=== PATIENT | female | born 1990 | race African-American/Black ===

== ENCOUNTER 2019-11-20 19:45 | Inpatient (IN) | payer OTHER ==
[~2019-11-20 19:45] MED LIST: Bupivacaine 0.25% HCL 30 ML VIAL ONE
[2019-11-20] MEDS ORDERED: Ondansetron PF 4 MG/2 ML Vial IVP PRN (20:00)
[2019-11-20] MEDS ORDERED: Ibuprofen 800 MG TAB PO PRN (20:00)
[2019-11-20] MEDS ORDERED: NS / Oxytocin 40 units/1000ml 1,000 ML IV PRN (20:00)
[2019-11-20] MEDS ORDERED: Lidocaine 1% (PF) 30 ML VIAL SC PRN (20:00)
[2019-11-20] MEDS ORDERED: Promethazine HCl 25 MG/ML VIAL IM PRN (20:00)
[2019-11-20] MEDS ORDERED: hydrALAZINE 20 MG/ML VIAL SLOW IVP PRN (20:00)
--- NOTE | 2019-11-20 20:02 | PDOC.FPROB ---
FMR OB H&P: HPI - History of Present Illness Chief Complaint: IOL Indentification: 29 y/o @ 40.4 wks dated by 9.0 wk sono History of Present Illness: Pt reports feeling mild cramping, but no full contractions. Denies LOF, VB. Endorses some regular vaginal d/c but no odor or pain. Endorses movement. Primary Care Physician: Dr. Rodriguez - [facility] FMR OB H&P: Current - Care : 4 Para: [id number] Gestational age: 40.4 WGA Due date: 11/16/19 Dating Criteria: 9.0 wk sono Course/Complications: short interval obesity 1T chlamydia, neg TU mild intermittent asthma - OB Labs Blood type: A RH: positive HIV: negative RPR: negative HepBsAg: negative Rubella: immune Gonorrhea: negative Chlamydia: positive in 1T with negative TU Pap Smear: NILM, HPV neg 03/2019 A1c: 5.4% GBS: negative - First Trimester Ultrasound First trimester: 9.0 wk dating sono - Additional Ultrasound Additional: mBPP, RICHARD 8.46, NST reactive. 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 History: 1T chlamydia +, neg TU - Surgical History Sx History: none - Social History Social History: denies tobacco, etoh or drugs - Family History Family History: mother: asthma, HTN Sisters: asthma Grandparent: DM FMR OB H&P: Medications - Current Home Medications: Medication Instructions Recorded Confirmed Type Albuterol Sulfate [Proair HFA] 2 puff INH PRN PRN 11/20/19 11/20/19 History Allergies/Adverse Reactions: Allergies Allergy/AdvReac Type Severity Reaction Status Date / Time No Known Allergies Allergy Verified 11/20/19 20:18 FMR OB H&P: ROS - Review of Systems General: denies: fever/chills, weight/appetite/sleep changes Eyes: denies: vision changes, double vision ENT: denies: nasal congestion, sore throat Cardiovascular: denies: chest pain, edema Respiratory: denies: cough, shortness of breath Gastrointestinal: reports: nausea. denies: abdominal pain, vomiting Genitourinary (Female): denies: dysuria, hematuria, vaginal bleeding, contractions Musculoskeletal: denies: pain, swelling Neurologic: denies: numbness, weakness Integumentary: denies: itching, rash Hematologic/Lymphatic: denies: prolonged or excessive bleeding, enlarged lymph nodes Psychological: denies: depression, anxiety FMR OB H&P: Vital Signs - Maternal Vital signs: BP 128/73, HR 95, RR 16, O2 sat 97% on RA - Heart Tones Baseline: 130 Variability: moderate Acceleration: present Deceleration: absent Category: category 1 [place] contractions every: q1-2 min FMR OB H&P: Physical Exam - Physical Exam General: NAD, awake, alert and oriented HEENT: normocephalic and atraumatic, MMM, conjunctiva clear, grossly normal vision Neck: supple, no LAD Heart: pulses present, no edema General: no respiratory distress, no retractions Abdomen: soft, gravid, non-tender Musculoskeletal: normal gait and station, pulses present Neurological: no clonus, no focal deficit Skin: good tugor, capillary refill <2 seconds Lymphatic: no unusual bruising or bleeding, no purpura Psychiatric: intact recent and remote memory, good judgement and insight - Pelvic Exam Vulva: normal hair distribution, no discharge, no blood SVE: 3/60/-3/soft/posterior Presentation: cephalic FMR OB H&P: A/P - Problem List (1) Current Visit: Yes Status: Acute (2) Mild intermittent asthma Current Visit: No Status: Acute Code(s): J45.20 - MILD INTERMITTENT ASTHMA, UNCOMPLICATED Disposition: 1. Postdates -Admit to L&D for IOL -Dominguez score 6, so will start with cytotec -Continuous monitoring -GBS negative 2. Short Interpregnancy Interval 3. h/o Chlamydia in 1T Neg TU 4. Mild intermittent asthma Uses rescue inhaler 1-2 times per month -Avoid Hemabate Discussion: Date/Time: 11/20/192001 This H&P was discussed with Dr. Barakat who agrees with the above documentation and plan. Signature: Katherine Menon MD, PGY-3 Addendum - Attending - Attending Attestation Date/Time: 11/20/19 1730 I personally evaluated the patient and discussed the management with Dr. Menon. I agree with the History, Examination, Assessment and Plan documented above with any addition or exceptions noted below.
[2019-11-20 20:28] VITALS: BMI 36.9
[2019-11-20] MEDS: Lactated Ringer's 1,000 ML IV SCH (20:38)
[2019-11-20] MEDS: Misoprostol 100 MCG TAB VAG SCH (21:00)
[2019-11-20 21:21] LABS: Mean Corpuscular HGB CONC 31.6 g/dL (32.0-36.0); Mean Corpuscular Hemoglobin 21.8 pg (27.0-31.0); Mean Corpuscular Volume 68.8 fL (78.0-98.0); Mean Platelet Volume 9.4 fL (7.4-10.4); Platelet Count 268 thou/uL (130-400); RBC Distribution Width 14.8 % (11.5-14.5); Red Blood Cell (RBC) Count 5.04 mill/uL (4.20-5.40); White Blood Cell (WBC) Count 8.3 thou/uL (4.8-10.8)
[2019-11-20 22:01] LABS: Syphilis Antibody Nonreactive (Nonreactive); Syphilis Antibody Index 0.05 S/CO (<1.00 Non-Reactive)
[2019-11-20 23:37] LABS: HBSAg Index 0.22 S/CO (0-0.99); Hep B Surf Ag Non-Reactive S/CO (NonReactive)
[2019-11-21] MEDS ORDERED: Fentanyl 4 mcg/Bup 0.1% Cadd 100 ML ONE (01:17)
--- NOTE | 2019-11-21 01:20 | PDOC.LDPN ---
Labor & Delivery Progress Note - Subjective Subjective: comfortable, painful contractions, no concerns - Objective Vital signs reviewed and normal: yes General: NAD, resting, breathing through contractions Uterine fundus: non tender SVE: 575/-2 Dilation: 5 Effacement: 75% Station: -2 FHT: category 1 (FHT 130), variability present [place] contractions every: 2-3 min Plan: continue plan of care, pitocin for augmentation -: 29 y/o @ 40.5 wks dated by 9.0 wk sono presents for IOL: #Postdates -initial SVE @ 2030 is 360/-1, cytotec placed at 2100 -SVE @ 0130 is 575/-1, plan to start Pitocin -Continuous monitoring -GBS negative -Maternal position changes as needed #Short Interpregnancy Interval #h/o Chlamydia in 1T Neg TU #Mild intermittent asthma Uses rescue inhaler 1-2 times per month -Avoid Hemabate Dispo: Admitted to L&D for IOL. Continue to monitor labor progression, plan to start Pitocin augmentation with this check. Next check in ~ 4 hours.
[2019-11-21] MEDS ORDERED: Fentanyl 100 MCG/2 ML VIAL ONE (01:24)
[2019-11-21] MEDS: Misoprostol 100 MCG TAB VAG SCH ×6 (02:12→21:31)
[2019-11-21] MEDS: Lactated Ringer's 1,000 ML IV SCH ×2 (02:30→05:00)
[2019-11-21] MEDS ORDERED: Bupivacaine 0.25% HCL 30 ML VIAL ONE (03:13)
--- NOTE | 2019-11-21 05:01 | PDOC.LDPN ---
Labor & Delivery Progress Note - Subjective Subjective: comfortable, painful contractions - Objective Vital signs reviewed and normal: yes General: NAD, resting, breathing through contractions Uterine fundus: non tender SVE: 7.5/90/-1, mid-position, soft Dilation: 7.5 Effacement: 90% Station: -1 FHT: category 2 (FHT 120 baseline), late decelerations (recurrent with mild to moderate variability), variability present [place] contractions every: 2-4 min Resuscitative measures: maternal position change Plan: continue plan of care, labor augmentation -: 29 y/o @ 40.5 wks dated by 9.0 wk sono presents for IOL: #Postdates -initial SVE @ 2030 is 3/60/-1, cytotec placed at 2100 -SVE @ 0130 is 5/75/-1, plan to start Pitocin -SVE @ 0445 is 7.5/90/-1, having recurrent late decels on FHT-responsive to maternal position changes -Continuous monitoring -GBS negative -Maternal position changes as needed -Epidural placed at 0430 #Short Interpregnancy Interval #h/o Chlamydia in 1T Neg TU #Mild intermittent asthma Uses rescue inhaler 1-2 times per month -Avoid Hemabate Dispo: Admitted to L&D for IOL. Continue to monitor closely for labor progression. Monitor FHT closely. Next check in ~2-3 hours.
--- NOTE | 2019-11-21 07:13 | PDOC.OPDEL ---
OB Operative/Delivery Note Delivery Dr/Surgeon: Jozef Yost Neal Pre-Delivery Diagnosis: elective induction Procedure/Post Delivery Dx: spontaneous vaginal delivery Anesthesia: epidural - Additional Findings/Plan Placenta delivered: spontaneous Repaired Obstetrical Laceration: none Estimated blood loss: 100 mL Compilations/Other Findings: Delivering Physician: Jozef Yost Attending: Yuval Procedure: Spontaneous Vaginal Delivery Anesthesia: epidural EBL: 100 ml QBL pending Pre-op Diagnosis: 1. Term intrauterine in labor 2. Post-dates 3. Short interpregnancy interval 4. Hx of Chlamydia infection in 1st trimester 5. Mild intermittent asthma Post-op Diagnosis: 1. Term intrauterine , delivered 2. same as above Indications: A 29 y/o female presents to L&D for induction due to Post- dates. Delivery Note: This is 29 yo F @ 40.5 wks who delivered a viable F infant at 0649 on 11/21/2019. Following an uneventful antepartum course, a vigorous female was delivered over an intact perineum in the right occipitoanterior position. Anterior Shoulder and then remainder of the body delivered. No nuchal cord. The head was held down and mouth and nares were bulb suctioned. Cord clamped after delayed cord clamping and cut. Placenta delivered intact in the Sanchez presentation with a 3 vessel cord noted. Fundal massage was performed and the fundus was firm. The cervix and vagina were inspected and found to be free of lacerations. Infant went to nursery in good condition for routine care. Apgars were 9/9 at 1 & 5 minutes, respectively. Patient tolerated delivery well and went to after routine recovery/care. Post delivery plan: routine recovery Addendum - Attending - Attending Attestation Date/Time: 11/21/19 0803 I personally supervised and assisted with the .
[2019-11-21] MEDS: NS w/ Oxytocin 10 units 500 ML IV SCH (07:19)
[2019-11-21] MEDS ORDERED: Methylergonovine 0.2 MG TAB PO PRN (07:40)
[2019-11-21] MEDS ORDERED: Misoprostol 200 MCG TAB VAG PRN (07:40)
[2019-11-21] MEDS ORDERED: Adacel (T-DAP) 0.5 ML SYRINGE IM ONE (07:40)
[2019-11-21] MEDS ORDERED: Lanolin Ointment 7 GM TUBE TOP PRN (07:40)
[2019-11-21] MEDS ORDERED: Milk Of Magnesia 30 ML UDCUP PO PRN (07:40)
[2019-11-21] MEDS ORDERED: Methylergonovine 0.2 MG/ML VIAL IM PRN (07:40)
[2019-11-21] MEDS ORDERED: Bisacodyl 10 MG SUPP PR PRN (07:40)
[2019-11-21] MEDS ORDERED: Benzocaine-Menthol 82.5 ML CAN TOP PRN (07:40)
[2019-11-21] MEDS ORDERED: Preparation H Ointment 28 GM TUBE PR PRN (07:40)
[2019-11-21] MEDS ORDERED: diphenhydrAMINE 25 MG CAP PO PRN (07:40)
[2019-11-21] MEDS ORDERED: Ferrous Sulfate 325 MG TAB PO SCH (08:00)
[2019-11-21] MEDS ORDERED: NS / Oxytocin 40 units/1000ml 1,000 ML ONE (08:38)
[2019-11-21] MEDS: Docusate Calcium (SURFAK) 240 MG CAP PO SCH ×2 (09:47→21:29)
[2019-11-21] MEDS: Prenatal Vitamin 1 TAB PO SCH (09:47)
[2019-11-21] MEDS: Acetaminophen 500 MG TAB PO PRN ×2 (11:04→17:39)
[2019-11-21] MEDS: Ibuprofen 800 MG TAB PO SCH (16:07)
[2019-11-22] MEDS: Ibuprofen 800 MG TAB PO SCH ×3 (00:16→15:44)
[2019-11-22] MEDS: Acetaminophen 500 MG TAB PO PRN ×2 (04:16→10:21)
[2019-11-22] MEDS: Misoprostol 100 MCG TAB VAG SCH ×5 (04:36→16:47)
[2019-11-22 05:21] LABS: Hemoglobin 9.4 g/dL (12.0-16.0); Mean Corpuscular HGB CONC 30.8 g/dL (32.0-36.0); Mean Corpuscular Hemoglobin 21.6 pg (27.0-31.0); Mean Corpuscular Volume 70.2 fL (78.0-98.0); Mean Platelet Volume 9.4 fL (7.4-10.4); Platelet Count 241 thou/uL (130-400); RBC Distribution Width 14.9 % (11.5-14.5); Red Blood Cell (RBC) Count 4.34 mill/uL (4.20-5.40)
[2019-11-22] MEDS ORDERED: HYDROcodone/Acetaminophen 5/325 mg Tablet PO SCH (06:30)
[2019-11-22] MEDS: NS w/ Oxytocin 10 units 500 ML IV SCH (07:38)
--- NOTE | 2019-11-22 08:22 | PDOC.OBPPN ---
FMR OB PN: Subj - Interval History Day: 1 Chief Complaint: PPD#1, s/p Indentification: delivered MARIA TERESA F at 0649 11/21/19 via Interval History: Overnight complains of KNUTSON improved with lying flat. Denies vision changes. FMR OB PN: Obj - Maternal Vital signs: BP: 138/85 HR: 71 RR: 18 Tmax: 98.2 Pox: 99% on RA - Urine output I&O: 11/21/19 11/22/19 11/23/19 06:59 06:59 06:59 Output Total 220 Balance -220 - Lochia Lochia: improved from yesterday, passing small clots, about the amount of normal period - Pain Management Intervention: oral medication FMR OB PN: Exam - Physical Exam General: NAD, awake, alert and oriented HEENT: grossly normal hearing Neck: supple Heart: RRR, normal S1/S2, pulses present General: CTAB, no respiratory distress, good air movement Abdomen: soft, fundus(cm) (2cm below umbilicus, appropriately tender to palpation, small umbilical hernia) Skin: no rash Psychiatric: intact recent and remote memory, good judgement and insight, normal mood and affect - Pelvic Exam : normal lochia FMR OB PN: Data - Labs Lab results: Laboratory Results - last 24 hr 11/22/19 05:04 WBC 9.0 RBC 4.34 Hgb 9.4 L Hct 30.5 L MCV 70.2 L MCH 21.6 L MCHC 30.8 L RDW 14.9 H Plt Count 241 MPV 9.4 FMR OB PN: A/P - Problem List (1) , delivered Current Visit: Yes Status: Acute Code(s): O80 - ENCOUNTER FOR FULL-TERM UNCOMPLICATED DELIVERY (2) Headache after spinal puncture Current Visit: Yes Status: Acute Code(s): G97.1 - OTHER REACTION TO SPINAL AND LUMBAR PUNCTURE (3) Obesity affecting Current Visit: No Status: Acute Code(s): O99.210 - OBESITY COMPLICATING , UNSPECIFIED TRIMESTER Disposition: 29yo ->4 delivered MARIA TERESA F via on 11/21/19 at 0649 without complications. Doing well PPD #1. Concern for random elevated BP in clinic and a couple during delivery. No elevated pressures since that time > 140/90. Lochia wnl. Post pain well controlled, does have likely epidural related KNUTSON, improved after [place], but still present. She does not feel ready to go home d/ t KNUTSON- will contact anesthesia for possible blood patch. Baby well. Ambulating, passing flatus. H/H drop from 11 to 9, asymptomatic. Encourage continued Fe. D/c home today likely. Discussion: Date/Time: 11/22/1918 This H&P was discussed with [] and [] who agree with the above documentation and plan. Addendum - Attending - Attending Attestation Date/Time: 11/22/19 1131 I personally evaluated the patient and discussed the management with Dr. Rodriguez I agree with the History, Examination, Assessment and Plan documented above with any addition or exceptions noted below - Patient with KNUTSON when sittin gup improved with lying down. Afebrile VSS. A/P: 1) PPD#1 s/p - Continue current care. 2) KNUTSON- possible spinal KNUTSON. Will have anesthesia evaluate patient.
[2019-11-22] MEDS: Docusate Calcium (SURFAK) 240 MG CAP PO SCH (09:36)
[2019-11-22] MEDS: Prenatal Vitamin 1 TAB PO SCH (09:36)
[2019-11-22 09:44] VITALS: TEMP 99
[2019-11-22] MEDS ORDERED: Acetaminophen 500 MG TAB PO SCH (10:21)
[2019-11-22 12:05] VITALS: BP 123/51
== END 2019-11-22 18:19 | disposition home or self-care (01) | DRG 807 ==
LOC: L&D/OP 19:45 → L&D 20:15 → 3SW 11-21 09:16
PROVIDERS: ADMIT Emergency Medicine; ATTEND Emergency Medicine
PROC: 10E0XZZ Delivery of Products of Conception, External Approach (ICD-10-PCS; principal; 2019-11-21)
PROC: 10907ZC Drainage of Amniotic Fluid, Therapeutic from Products of Conception, Via Natural or Artificial Opening (ICD-10-PCS; 2019-11-21)
DX: O48.0 Post-term pregnancy (principal); Z37.0 Single live birth; J45.20 Mild intermittent asthma, uncomplicated; O99.52 Diseases of the respiratory system complicating childbirth; O99.214 Obesity complicating childbirth; E66.9 Obesity, unspecified; O76 Abnormality in fetal heart rate and rhythm complicating labor and delivery; O74.5 Spinal and epidural anesthesia-induced headache during labor and delivery; Z3A.40 40 weeks gestation of pregnancy; Z79.51 Long term (current) use of inhaled steroids
CPT/HCPCS: 36415; 51702; 76819; 80053; 82570; 84156; 85025; 85027; 86780; 86850; 86900; 86901; 87340; 99284; J3010; S0020

== ENCOUNTER 2019-11-23 14:53 | Day surgery (SDC) | payer OTHER ==
[~2019-11-23 14:53] MED LIST changes: -Bupivacaine 0.25% HCL 30 ML VIAL ONE; +Lidocaine 1% PF 5 ML VIAL ONE
== END 2019-11-23 16:12 | disposition home or self-care (01) ==
LOC: SDC 14:53
PROVIDERS: ATTEND Family Medicine
PROC: 3E0S3GC Introduction of Other Therapeutic Substance into Epidural Space, Percutaneous Approach (ICD-10-PCS; principal; 2019-11-23)
DX: G97.1 Other reaction to spinal and lumbar puncture (principal)
CPT/HCPCS: 62272; J2001